=== PATIENT | female | born 1970 | race Caucasian/White ===

== ENCOUNTER 2018-09-19 21:44 | Emergency (ER) | payer OTHER, BC ==
[2018-09-19 22:11] LABS: Basophils % (A) 0 %; Eosinophils # (A) 0.2 k/uL (0-0.7); Eosinophils % (A) 3 %; HCT 40.7 % (34.0-46.0); HGB 13.6 gm/dL (11.4-16.0); Lymphocytes # (A) 1.2 k/uL (1.0-4.8); Lymphocytes % (A) 17 %; MCH 31.4 pg (25.0-35.0); MCHC 33.5 g/dL (31.0-37.0); MCV 93.8 fL (80.0-100.0); Mean Platelet Volume 7.5; Monocytes # (A) 0.4 k/uL (0-1.0); Monocytes % (A) 6 %; Neutrophils % (A) 71 %; Platelet Count 205 k/uL (150-450); RBC 4.34 m/uL (3.80-5.40); RDW 12.7 % (11.5-15.5)
--- NOTE | 2018-09-19 22:20 | ED ---
Chest Pain HPI - General Stated Complaint: chest pain Time Seen by Provider: 09/19/18 21:54 Source: patient, EMS Mode of arrival: EMS Limitations: no limitations - History of Present Illness Initial Comments: This patient is a 47-year-old woman who presents to be evaluated for substernal chest pain. 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 She states pain was a heavy feeling, severe, constant. She had some associated nausea and sweating. The patient brought here by ambulance and states that the nitroglycerin that he ate did help to relieve the pain, though she notes, that it did seem to be subsiding a little bit spontaneously before she received that. Patient states that she has had episodes of this in the past. She had a heart catheterization for this pain in proximally 4-5 years ago. She was told that it was normal. She was admitted in [facility] last year for 4 days to have workup for this and states that they could not find a cause for the pain. MD Complaint: chest pain Onset/Timin -: hour(s) Onset: during rest Pain Location: substernal Pain Radiation: back Severity: severe Quality: heaviness Consistency: now resolved Improves With: nitroglycerin Worsens With: nothing Anginal Symptoms: nausea, diaphoresis Treatments Prior to Arrival: aspirin, nitroglycerin - Related Data On Oral Contraceptives: No Home Medications Medication Instructions Recorded Confirmed Hydrochlorothiazide [Hydrodiuril] 25 mg PO DAILY 09/19/18 09/19/18 Levothyroxine Sodium 100 mcg PO DAILY 09/19/18 09/19/18 Potassium Citrate [Urocit-K] 15 meq PO AC-BID 09/19/18 09/19/18 Allergies Allergy/AdvReac Type Severity Reaction Status Date / Time No Known Allergies Allergy Verified 09/19/18 22:25 Review of Systems ROS Statement: Those systems with pertinent positive or pertinent negative responses have been documented in the HPI. ROS Other: All systems not noted in ROS Statement are negative. Constitutional: Denies: fever, chills, weakness Respiratory: Denies: cough, dyspnea Cardiovascular: Reports: chest pain. Denies: palpitations, orthopnea, edema, syncope Gastrointestinal: Reports: nausea. Denies: abdominal pain, vomiting, diarrhea, constipation, melena, hematochezia Genitourinary: Denies: dysuria, hematuria Musculoskeletal: Denies: back pain Skin: Denies: rash Neurological: Denies: headache, weakness, numbness EKG Findings - EKG Results: EKG: interpreted by NYDIA WYLIE, sinus rhythm (Rate 86 bpm), normal axis, normal QRS, normal ST/T, no acute changes - OR, Pacemaker, Normal: Normal tracing: normal tracing Past Medical History Past Medical History: Atrial Fibrillation, Thyroid Disorder Additional Past Medical History / Comment(s): kidney disorder History of Any Multi-Drug Resistant Organisms: None Reported Past Surgical History: Cholecystectomy, Heart Catheterization Past Psychological History: No Psychological Hx Reported Smoking Status: Never smoker Past Alcohol Use History: Occasional Past Drug Use History: None Reported General Exam Limitations: no limitations General appearance: alert, in no apparent distress Head exam: Present: atraumatic, normocephalic Eye exam: Present: normal appearance. Absent: scleral icterus, conjunctival injection ENT exam: Present: normal oropharynx Neck exam: Present: normal inspection Respiratory exam: Present: normal lung sounds bilaterally. Absent: respiratory distress, wheezes, rales, rhonchi, stridor Cardiovascular Exam: Present: regular rate, normal rhythm, normal heart sounds. Absent: systolic murmur, diastolic murmur, rubs, gallop GI/Abdominal exam: Present: soft. Absent: distended, tenderness, guarding, rebound, rigid, mass Extremities exam: Present: normal inspection, normal capillary refill. Absent: pedal edema, calf tenderness Back exam: Present: normal inspection. Absent: CVA tenderness (R), CVA tenderness (L) Neurological exam: Present: alert Skin exam: Present: warm, dry, intact, normal color. Absent: rash Course Vital Signs 09/19/18 09/19/18 09/19/18 21:46 22:00 22:39 Temperature 98.3 F Pulse Rate 91 81 Pulse Rate [ 89 Bilateral Lead Press Operator ] Respiratory 18 16 Rate Blood Pressure 143/84 119/77 O2 Sat by Pulse 100 100 Oximetry 09/20/18 09/20/18 00:33 01:30 Temperature 98.2 F Pulse Rate 78 86 Pulse Rate [ Bilateral Lead Press Operator ] Respiratory 16 16 Rate Blood Pressure 121/81 127/84 O2 Sat by Pulse 98 99 Oximetry Disposition Clinical Impression: Chest pain Disposition: HOME SELF-CARE Condition: Good Instructions (If sedation given, give patient instructions): Chest Pain (ED) Is patient prescribed a controlled substance at d/c from ED?: No Referrals: Nonstaff,Physician [Primary Care Provider] - 1-2 days
[2018-09-19 22:22] LABS: INR 0.9 (<1.2); Partial Thromboplastin Time 23.9 sec (22.0-30.0); Prothrombin Time 9.7 sec (9.0-12.0)
[2018-09-19 22:23] LABS: ALT 22 U/L (9-52); AST 52 U/L (14-36); Albumin 4.3 g/dL (3.5-5.0); Alkaline Phosphatase 62 U/L (38-126); Amylase 50 U/L (30-110); Anion Gap 8 mmol/L; Blood Urea Nitrogen 19 mg/dL (7-17); Calcium 9.4 mg/dL (8.4-10.2); Carbon Dioxide 27 mmol/L (22-30); Chloride 104 mmol/L (98-107); Glucose 143 mg/dL (74-99); Lipase 78 U/L (23-300); Magnesium 1.9 mg/dL (1.6-2.3); Potassium 3.4 mmol/L (3.5-5.1); Sodium 139 mmol/L (137-145); Total Bilirubin 0.5 mg/dL (0.2-1.3); Total Protein 7.2 g/dL (6.3-8.2)
--- NOTE | 2018-09-19 22:23 | XR ---
EXAM: XR Chest, 2 Views CLINICAL HISTORY: Chest Pain TECHNIQUE: Frontal and lateral views of the chest. COMPARISON: No relevant prior studies available. FINDINGS: Lungs: Unremarkable. No consolidation. Pleural space: Unremarkable. No pneumothorax. Heart: Unremarkable. No cardiomegaly. Mediastinum: Unremarkable. Bones/joints: Unremarkable. IMPRESSION: No evidence for acute disease process in the chest
[2018-09-19 22:34] LABS: D-Dimer <0.17 mg/L FEU (<0.60)
[2018-09-19 22:54] LABS: Appearance,Urine Cloudy (Clear); Bilirubin,Urine Negative (Negative); Blood,Urine Negative (Negative); Color,Urine Yellow; Glucose,Urine (UA) Negative (Negative); Ketones,Urine Trace (Negative); Leukocyte Esterase,Urine Negative (Negative); Mucus,Urine Rare /hpf; Nitrite,Urine Negative (Negative); PH, Urine 7.5 (5.0-8.0); Protein,Urine Trace (Negative); RBC,Urine 8 /hpf (0-5); Specific Gravity,Urine 1.025 (1.001-1.035); Squamous Epithelial Cell,Urine 3 /hpf (0-4); Urobilinogen,Urine <2.0 mg/dL (<2.0); WBC,Urine 1 /hpf (0-5)
[2018-09-19] MEDS ORDERED: MAG HYDROX/AL HYDROX/SIMETH 30 ML, HYOSCYAMINE ELIXIR 10 ML, CIMETIDINE HCL 300 MG, LID... PO STA ×4 (23:08)
[2018-09-20 01:32] VITALS: BP 127/84
[2018-09-20 02:29] VITALS: PULSE 80; RESP 18; TEMP 97
== END 2018-09-20 02:29 | disposition home or self-care (01) ==
LOC: EC 21:44
DX: R07.89 Other chest pain (principal); R11.0 Nausea; R61 Generalized hyperhidrosis; E07.9 Disorder of thyroid, unspecified; Z79.890 Hormone replacement therapy; Z79.899 Other long term (current) drug therapy; Z95.5 Presence of coronary angioplasty implant and graft
CPT/HCPCS: 36415; 71046; 80053; 81001; 82150; 83690; 83735; 84484; 85025; 85379; 85610; 85730; 93005; 99285